=== PATIENT | female | born 1955 | race Caucasian/White ===

== ENCOUNTER 2016-11-11 13:01 | Emergency (ER) | payer BC ==
[~2016-11-11] VITALS: Ht 165.1 cm; Wt 52.3 kg
[2016-11-11 13:04] VITALS: BP 152/77; PULSE 72; RESP 20; TEMP 98; O2SAT 97
[2016-11-11] MEDS ORDERED: ORPHENADRINE INJ 60 MG/2 ML AMP IM ONE (13:45)
[2016-11-11] MEDS ORDERED: KETOROLAC TROMETHAMINE 60 MG/2 ML (IM) VIAL IM ONE (13:45)
--- NOTE | 2016-11-11 13:52 | PD ---
HPI Chief Complaint: Pain: Acute or Chronic Time Seen by Provider: 13:52 Travel History International Travel<30 days: No Contact w/Intl Traveler<30days: No Traveled to known affect area: No History of Present Illness HPI 61 year-old female with history of sciatica presents to the emergency department for evaluation of exacerbation of her sciatica. Patient states she recently moved. Prior to the onset of her symptoms for days ago, she had moved a lot of furniture. She states that she woke up with his significant right lower back pain radiating to right leg. No saddle paresthesia, loss of bowel or bladder, or lower extremity weakness. She's not had any fever or chills. No acute injury. She states that she has a physician neighbor who wrote her for a Medrol Dosepak. She is on day 3 and does not feel that anything has improved. Denies any lower extremity swelling or distal lower extremity pain. Cannot recall any exacerbating or alleviating factors. No urinary symptoms. She has no other symptoms at this time to report. PFSH Past Medical History Hx Anticoagulant Therapy: Yes (81 MG ASA ) Social History Alcohol Use: Yes Tobacco Use: No Substance Use: No Allergies-Medications (Allergen,Severity, Reaction): Coded Allergies: No Known Allergies (Unverified , 11/11/16) Reported Meds & Prescriptions Reported Meds & Active Scripts Active Ibuprofen 600 Mg Tab 600 Mg PO Q8HR PRN Robaxin (Methocarbamol) 500 Mg Tab 500 Mg PO QID PRN Reported Aspirin 81 Mg Tabdr 81 Mg PO DAILY Review of Systems Except as stated in HPI: all other systems reviewed are Neg Physical Exam Narrative GENERAL: Well-nourished, well-developed female patient, ambulatory and in no acute distress SKIN: Warm and dry. HEAD: Normocephalic. EYES: No scleral icterus. No injection or drainage. NECK: Supple, trachea midline. No JVD or lymphadenopathy. CARDIOVASCULAR: Regular rate and rhythm without murmurs, gallops, or rubs. RESPIRATORY: Breath sounds equal bilaterally. No accessory muscle use. GASTROINTESTINAL: Abdomen soft, non-tender, nondistended. MUSCULOSKELETAL: No cyanosis, or edema. 5+ strength equal bilateral lower extremities. Sensation intact distal lower extremities. Tenderness with palpation of the right sacroiliac joint. BACK: Nontender without obvious deformity. No CVA tenderness. Data Data Last Documented VS Vital Signs Date Time Temp Pulse Resp B/P Pulse Ox O2 Delivery O2 Flow Rate FiO2 11/11/16 13:04 98.0 72 20 152/77 97 Room Air Orders Hip, Uni(Ap&Lat) W Ap Pelvis (11/11/16 ) Ketorolac Inj (Toradol Inj) (11/11/16 13:45) Orphenadrine Inj (Norflex Inj) (11/11/16 13:45) Splint Or Brace Apply/Monitor (11/11/16 13:43) Brace Quick Draw Corset (11/11/16 ) MDM Medical Decision Making Medical Screen Exam Complete: Yes Emergency Medical Condition: Yes Medical Record Reviewed: Yes Differential Diagnosis Sciatica versus sacroiliitis versus lumbar radiculopathy versus muscle strain versus discogenic pain Narrative Course 61-year-old female with history of sciatica presents to emergency department for evaluation of an exacerbation of this. Patient recently moved and does not have primary care provider. X-ray imaging of the hip and pelvis are without acute bony abnormality. Patient is provided pain control and a quick draw back brace. She is counseled on care. She is encouraged to establish care with primary care providers and she now lives here. She agrees to return immediately with any acute worsening of symptoms. Diagnosis Primary Impression: Low back pain radiating down leg Additional Impression: Right sided sciatica Referrals: Primary Care Physician Patient Instructions: General Instructions, Sciatica (ED) Additional Instructions: Ice and/or warm receiving helps alleviate symptoms Follow-up with her primary care provider Avoid activity that exacerbates pain Avoid heavy lifting, bending, twisting. utilize brace for support when ambulatory. Do not wear this at all times as it may weaken her core muscles, worsening your pain Return immediately to the emergency department with any acute worsening of symptoms Med/Other Pt SpecificInfo: Prescription(s) given Scripts Ibuprofen 600 Mg Lew299 Mg PO Q8HR PRN (PAIN) #30 TAB Ref 0 Prov:Fartun Peterson 11/11/16 Methocarbamol (Robaxin)500 Mg [id number] Mg PO QID PRN (MUSCLE SPASM) #20 TAB Ref 0 Prov:Fartun Peterson 11/11/16 Disposition: 01 DISCHARGE HOME Condition: Stable Fartun Peterson Nov 11, 2016 13:52
[2016-11-11] MEDS ORDERED: ROBA500T PO (15:27)
[2016-11-11] MEDS ORDERED: IBUP-232 PO (15:27)
--- NOTE | 2016-11-11 15:38 | RADRPT ---
EXAM DATE/TIME: 11/11/2016 14:05 [facility] COMPARISON: No previous studies available for comparison. INDICATIONS : Right hip pain, no injury. MEDICAL HISTORY : None. SURGICAL HISTORY : None. ENCOUNTER: Initial ACUITY: 1 day PAIN SCORE: 10/10 LOCATION: Right hip FINDINGS: Examination of the right hip was performed with AP Pelvis. The primary and secondary trabecular sherin ruth of the femoral neck is intact. The hip joint is of normal width without significant sclerosis or bony hypertrophy. The acetabulum is grossly intact. CONCLUSION: Negative for fracture or dislocation. Follow up in 7-10 days is suggested if symptoms persist. Tom Harden MD FACR on November 11, 2016 at 15:25 Board Certified Radiologist. This report was verified electronically.
[2016-11-11] MEDS ORDERED: ASPI1TAB69 PO (16:00)
== END 2016-11-11 16:22 | disposition home or self-care (01) ==
LOC: NETRI 16:07
DX: M54.41 Lumbago with sciatica, right side (principal)
CPT/HCPCS: 73502; 99283; L0627